=== PATIENT | male | born 1945 | race Hispanic/Latino ===

== ENCOUNTER 2017-07-05 10:03 | Outpatient (CLI) | payer MEDICARE ==
[2017-07-05 11:17] LABS: Blood Urea Nitrogen 30 mg/dL (9-20)
[2017-07-05] MEDS ORDERED: NACL ONE (11:35)
--- NOTE | 2017-07-05 15:24 | Cat Scan Report ---
CTA NECK INDICATION: Occlusion and stenosis of bilateral carotid arteries. COMPARISON: None similar at this institution. FINDINGS: Neck CTA performed following IV contrast. Axial, sagittal and coronal CT reconstructions obtained. Aortic atherosclerotic changes with patent arch. Normal major branching pattern with mild stenosis at their origins not excluded. Otherwise patent bilateral subclavian and common carotid arteries. Atherosclerotic changes/calcifications about the carotid bulbs noted bilaterally. Mild, less than 50% stenosis of the left carotid bulb while moderate to severe focal narrowing of the right carotid bulb ranging in the 80-99% suspected. Further distal internal carotid arteries appear patent. Visualized ECA branches also appear unremarkable. Clear imaged paranasal sinuses and intracranial appearance. Nasal septal deviation. Approximately 1.7 cm subcutaneous possible sebaceous cyst anterior to the left sternoclavicular joint, axial image 97, series 2. Few small left thyroid hypodensities measure up to 0.9 cm. Patent airway. Emphysematous changes in the upper lobes with biapical scarring, left greater than right. Mid to lower cervical spondylosis from C5-C7 with moderate disc narrowing and mild degenerative spurring. CONCLUSION: 1. Moderate to severe focal stenosis noted at the right carotid bulb, felt in the 80-99% range, as described. 2. Various other findings, as above. Thank you for the opportunity to participate in this patient's care.
== END 2017-07-05 10:04 | disposition home or self-care (01) ==
LOC: CT 10:03
PROVIDERS: ATTEND Surgery Vascular Surgery
DX: I65.23 Occlusion and stenosis of bilateral carotid arteries (principal); L72.3 Sebaceous cyst; M47.892 Other spondylosis, cervical region; J34.2 Deviated nasal septum; I70.0 Atherosclerosis of aorta
CPT/HCPCS: 36415; 70498; 82565; 84520; Q9967